=== PATIENT | male | born 1995 | race Two or more races ===

== ENCOUNTER 2016-03-31 16:39 | Emergency (ER) | payer BC ==
[2016-03-31 16:45] VITALS: BP 120/70
[2016-03-31 18:24] LABS: Hematocrit 44 % (42-52); Hemoglobin 15.2 g/dl (14.0-18.0); Mean Corpuscular HGB Conc 35 g/dl (31-36); Mean Corpuscular Hemoglobin 31 pg (27-31); Mean Corpuscular Volume 89 fL (80-94); Mean Platelet Volume 8 um3 (7.4-10.4); Red Blood Count 4.98 10^6/ul (4.0-5.4); Red Cell Distribution Width 13 % (10.5-15); White Blood Count 7.9 10^3/ul (3.5-10.8)
[2016-03-31 18:38] LABS: ALT 18 U/L (7-52); AST 27 U/L (13-39); Albumin 4.4 g/dL (3.2-5.2); Alkaline Phosphatase 49 U/L (34-104); Anion Gap 7 mmol/L (2-11); BUN/Creatinine Ratio 17.8 (8-20); Blood Urea Nitrogen 18 mg/dL (6-24); C Reactive Protein < 1.00 mg/L (< 5.00); CO2 Carbon Dioxide 27 mmol/L (22-32); Calcium 9.5 mg/dL (8.6-10.3); Chloride 103 mmol/L (101-111); EGFR African American 119.9 (>60); EGFR Non-African American 93.2 (>60); Globulin 2.2 g/dL (2-4); Glucose 92 mg/dL (70-100); Potassium 3.8 mmol/L (3.5-5.0); Sodium 137 mmol/L (133-145); Total Protein 6.6 g/dL (6.4-8.9)
[2016-03-31 19:01] LABS: Erythrocyte Sed Rate 3 mm/Hr (0-14)
[2016-03-31 19:17] LABS: Urine Bilirubin Negative (Negative); Urine Glucose Negative (Negative); Urine Nitrite Negative (Negative)
--- NOTE | 2016-04-15 07:50 | ED ---
Skin Complaint - HPI Summary HPI Summary: Pt here with purple spot along Lt inner thigh. Thinks he pulled a muscle here as he plays tennis and has been a little sore - bump on leg is more sore when he moves is thigh in certain positions - no pain with weight bearing. Denies acute injury here. Also denies fever, chills, unexpected weight change, night sweats, ab pain, N/V/D, dysuria, testicular pain and/or other skin areas of color change/swelling. No trauma to skin however he could have friction in the area d/t exercising. No radiating pain - denies numbness, tingling, weakness into LE's. - History of Current Complaint Chief Complaint: EDGeneral Time Seen by Provider: 03/31/16 17:00 Stated Complaint: GROIN INJURY Hx Obtained From: Patient Pain Intensity: 2 Pain Scale Used: 0-10 Numeric - Allergy/Home Medications Allergies/Adverse Reactions: Allergies Allergy/AdvReac Type Severity Reaction Status Date / Time No Known Allergies Allergy Verified 04/05/16 12:17 PMH/Surg Hx/FS Hx/Imm Hx Previously Healthy: Yes Endocrine/Hematology History: Denies: Hx Anticoagulant Therapy, Hx Blood Disorders, Hx Diabetes, Hx Unexplained Bleeding, Hx Coagulopothy, Autoimmune Disease Cardiovascular History: Denies: Hx Hypertension, Hx Pacemaker/ICD Sensory History: Denies: Hx Hearing Aid Psychiatric History: Denies: Hx Panic Disorder - Surgical History Surgery Procedure, Year, and Place: appendix Infectious Disease History: No Infectious Disease History: Denies: Hx Human Immunodeficiency Virus (HIV), Hx of Known/Suspected MRSA, Hx Shingles, Traveled Outside the [place] in Last 30 Days - Family History Known Family History: Positive: None - Social History Occupation: Student Lives: With Family - roommates Alcohol Use: Rare Hx Substance Use: No Substance Use Type: Reports: None Hx Tobacco Use: No Smoking Status (MU): Never Smoked Tobacco Review of Systems Negative: Fever, Chills, Fatigue Negative: Chest Pain Negative: Shortness Of Breath Negative: Abdominal Pain, Vomiting, Diarrhea, Nausea Negative: burning, dysuria, discharge, frequency, flank pain Skin: Other - see HPI Neurological: Negative Psychological: Normal All Other Systems Reviewed And Are Negative: Yes Physical Exam Triage Information Reviewed: Yes Vital Signs On Initial Exam: Initial Vitals Temp Pulse Resp BP Pulse Ox 98.4 F 71 18 120/70 100 03/31/16 16:42 03/31/16 16:42 03/31/16 16:42 03/31/16 16:42 03/31/16 16:42 Vital Signs Reviewed: Yes Appearance: Positive: Well-Appearing, No Pain Distress, Well-Nourished Skin: Positive: Warm, Dry - 6mm area of raised erythematous skin over Lt proximal inner thigh - mild TTP - mobile - no central pore, no drainage, no peripheral (appears to be skin vs. LN involvement). Negative: Lymphangitis - no enlarged LN's appreciated axillary, thoracic, supraclavicular, epitrochlear, popliteal Head/Face: Positive: Normal Head/Face Inspection Eyes: Positive: Normal, EOMI, Conjunctiva Clear. Negative: Conjunctiva Inflammed, Discharge ENT: Positive: Normal ENT inspection, Hearing grossly normal, Pharynx normal - mucosa moist Neck: Positive: Supple, Nontender, No Lymphadenopathy Respiratory/Lung Sounds: Positive: Clear to Auscultation, Breath Sounds Present. Negative: Rales, Rhonchi, Wheezes Cardiovascular: Positive: Normal, RRR, Pulses are Symmetrical in both Upper and Lower Extremities, S1, S2. Negative: Leg Edema Left, Leg Edema Right Abdomen Description: Positive: Nontender, No Organomegaly, Soft Bowel Sounds: Positive: Present Male Genital Exam: Positive: normal genitalia, no hernia. Negative: epididymal tenderness, erythema - scrotal area, penis, inguinal tenderness, lesions, scrotum tenderness (R), scrotum tenderness (L), testicular tenderness (R), testicular tenderness (L), urethral discharge Musculoskeletal: Positive: Normal, Strength/ROM Intact - no pain with ROM hip, knee, ankle Neurological: Positive: Normal, Sensory/Motor Intact, Alert, Oriented to Person Place, Time, CN Intact II-III Psychiatric: Positive: Normal Diagnostics - Vital Signs Vital Signs Temp Pulse Resp BP Pulse Ox 03/31/16 16:42 98.4 F 71 18 120/70 100 - Laboratory Lab Results: Lab Results 03/31/16 03/31/16 03/31/16 Range/Units 18:17 18:17 19:02 WBC 7.9 (3.5-10.8) 10^3/ul RBC 4.98 (4.0-5.4) 10^6/ul Hgb 15.2 (14.0-18.0) g/dl Hct 44 (42-52) % MCV 89 (80-94) fL MCH 31 (27-31) pg MCHC 35 (31-36) g/dl RDW 13 (10.5-15) % Plt Count 155 (150-450) 10^3/ul MPV 8 (7.4-10.4) um3 Neut % (Auto) 69.3 (38-83) % Lymph % (Auto) 20.2 L (25-47) % [place] % (Auto) 6.7 (1-9) % Eos % (Auto) 2.9 (0-6) % Baso % (Auto) 0.9 (0-2) % Absolute Neuts (auto) 5.4 (1.5-7.7) 10^3/ul Absolute Lymphs (auto) 1.6 (1.0-4.8) 10^3/ul Absolute Monos (auto) 0.5 (0-0.8) 10^3/ul Absolute Eos (auto) 0.2 (0-0.6) 10^3/ul Absolute Basos (auto) 0.1 (0-0.2) 10^3/ul Absolute Nucleated RBC 0 10^3/ul Nucleated RBC % 0 ESR 3 (0-14) mm/Hr Sodium 137 (133-145) mmol/L Potassium 3.8 (3.5-5.0) mmol/L Chloride 103 (101-111) mmol/L Carbon Dioxide 27 (22-32) mmol/L Anion Gap 7 (2-11) mmol/L BUN 18 (6-24) mg/dL Creatinine 1.01 (0.67-1.17) mg/dL Est GFR ( Amer) 119.9 (>60) Est GFR (Non-Af Amer) 93.2 (>60) BUN/Creatinine Ratio 17.8 (8-20) Glucose 92 (70-100) mg/dL Calcium 9.5 (8.6-10.3) mg/dL Total Bilirubin 1.00 (0.2-1.0) mg/dL AST 27 (13-39) U/L ALT 18 (7-52) U/L Alkaline Phosphatase 49 (34-104) U/L C-Reactive Protein < 1.00 (< 5.00) mg/L Total Protein 6.6 (6.4-8.9) g/dL Albumin 4.4 (3.2-5.2) g/dL Globulin 2.2 (2-4) g/dL Albumin/Globulin Ratio 2.0 (1-3) Urine Color Colorless Urine Appearance Clear Urine pH 7.0 (5-9) Ur Specific [place] 1.002 L (1.010-1.030) Urine Protein Negative (Negative) Urine Ketones Negative (Negative) Urine Blood Negative (Negative) Urine Nitrate Negative (Negative) Urine Bilirubin Negative (Negative) Urine Urobilinogen Negative (Negative) Ur Leukocyte Esterase Negative (Negative) Urine Glucose Negative (Negative) C.trachomatis (Amp Det) (Negative) N.gonorrhoeae (Amp Det) (Negative) 03/31/16 Range/Units 19:02 WBC (3.5-10.8) 10^3/ul RBC (4.0-5.4) 10^6/ul Hgb (14.0-18.0) g/dl Hct (42-52) % MCV (80-94) fL MCH (27-31) pg MCHC (31-36) g/dl RDW (10.5-15) % Plt Count (150-450) 10^3/ul MPV (7.4-10.4) um3 Neut % (Auto) (38-83) % Lymph % (Auto) (25-47) % [place] % (Auto) (1-9) % Eos % (Auto) (0-6) % Baso % (Auto) (0-2) % Absolute Neuts (auto) (1.5-7.7) 10^3/ul Absolute Lymphs (auto) (1.0-4.8) 10^3/ul Absolute Monos (auto) (0-0.8) 10^3/ul Absolute Eos (auto) (0-0.6) 10^3/ul Absolute Basos (auto) (0-0.2) 10^3/ul Absolute Nucleated RBC 10^3/ul Nucleated RBC % ESR (0-14) mm/Hr Sodium (133-145) mmol/L Potassium (3.5-5.0) mmol/L Chloride (101-111) mmol/L Carbon Dioxide (22-32) mmol/L Anion Gap (2-11) mmol/L BUN (6-24) mg/dL Creatinine (0.67-1.17) mg/dL Est GFR ( Amer) (>60) Est GFR (Non-Af Amer) (>60) BUN/Creatinine Ratio (8-20) Glucose (70-100) mg/dL Calcium (8.6-10.3) mg/dL Total Bilirubin (0.2-1.0) mg/dL AST (13-39) U/L ALT (7-52) U/L Alkaline Phosphatase (34-104) U/L C-Reactive Protein (< 5.00) mg/L Total Protein (6.4-8.9) g/dL Albumin (3.2-5.2) g/dL Globulin (2-4) g/dL Albumin/Globulin Ratio (1-3) Urine Color Urine Appearance Urine pH (5-9) Ur Specific [place] (1.010-1.030) Urine Protein (Negative) Urine Ketones (Negative) Urine Blood (Negative) Urine Nitrate (Negative) Urine Bilirubin (Negative) Urine Urobilinogen (Negative) Ur Leukocyte Esterase (Negative) Urine Glucose (Negative) C.trachomatis (Amp Det) Negative (Negative) N.gonorrhoeae (Amp Det) Negative (Negative) Result Diagrams: 03/31/16 18:17 03/31/16 18:17 Lab Statement: Any lab studies that have been ordered have been reviewed, and results considered in the medical decision making process. Course/Dx - Course Course Of Treatment: Pt presents with a single enlarged LN in Lt groin - labs are WNL and no clinical sx of systemic illness. Conservative care tx advised w/ close f/u. Pt agrees with plan. Also spoke w/ pt's father who agrees w/ plan. Reviewed danger s/sx of when to return to ED. - Diagnoses Provider Diagnoses: Lymphadenopathy Discharge - Discharge Plan Condition: Stable Disposition: HOME Patient Education Materials: Lymphadenopathy (ED) Referrals: [facility] LEIGH Medina [Primary Care Provider] - Additional Instructions: You may apply heat and use ibuprofen with food as needed for swelling, pain Drink plenty of water to help flush your system of toxins Rest Additional tests were ordered that are still in process. Follow-up with [facility] to review results and to recheck of affected areas. *If you develop fever, chills, abdominal pain, vomiting, painful urination and/ or difficulty urinating, back pain, return to ED
== END 2016-03-31 19:37 | disposition home or self-care (01) ==
LOC: ED 16:39
DX: R59.1 Generalized enlarged lymph nodes (principal)
CPT/HCPCS: 36415; 80053; 81003; 85025; 85652; 86140; 87491; 87591; 99282

== ENCOUNTER → 2016-12-22 17:17 | Emergency (ER) | payer OTHER, BC ==
[2016-12-22 17:27] VITALS: BP 115/68
== END | disposition left against medical advice (07) ==
LOC: ED 17:17
DX: M79.604 Pain in right leg (principal); Z53.21 Procedure and treatment not carried out due to patient leaving prior to being seen by health care provider
CPT/HCPCS: 99282

== ENCOUNTER 2016-12-22 22:16 | Emergency (ER) | payer OTHER, BC ==
[2016-12-22 23:27] VITALS: BP 114/64
--- NOTE | 2016-12-22 23:30 | ED ---
Lower Extremity - HPI Summary HPI Summary: 21 male presents to ED with complaints of right grant pain after being kicked while playing soccer yesterday. Sent over by for concern for compartment syndrome. Already had an xray at that was negative. Patient states it is painful without relief. Admits to bruising and swelling. Denies any other medical problems. Has not taken medication. Pain is worse with movement, walking and touching. Has been able to walk. Here to speak with orthopedics. No other complaints. No medications. No PMHX. - History of Current Complaint Chief Complaint: EDExtremityLower Stated Complaint: RIGHT GRANT INJURY Time Seen by Provider: 12/22/16 23:23 Hx Obtained From: Patient Mechanism Of Injury: Direct Blow - kicked by kleet Onset of Pain: Immediate, Post Accident Onset/Duration: Worse Since Severity Initially: Moderate Severity Currently: Severe Pain Intensity: 9 Pain Scale Used: 0-10 Numeric Timing: Constant Location: Is Discrete @ - right anterior grant Character Of Pain: Sharp, Aching Associated Signs And Symptoms: Positive: Swelling, Bruising Aggravating Factor(s): Standing, Ambulation Alleviating Factor(s): Rest Able to Bear Weight: Yes - painful - Allergies/Home Medications Allergies/Adverse Reactions: Allergies Allergy/AdvReac Type Severity Reaction Status Date / Time No Known Allergies Allergy Verified 05/21/16 11:27 PMH/Surg Hx/FS Hx/Imm Hx Endocrine/Hematology History: Denies: Hx Diabetes Cardiovascular History: Denies: Hx Hypertension, Hx Pacemaker/ICD History: Denies: Hx Renal Disease Sensory History: Denies: Hx Hearing Aid Psychiatric History: Denies: Hx Panic Disorder - Surgical History Surgery Procedure, Year, and Place: appendix - Immunization History Immunizations Up to Date: Yes Infectious Disease History: No Infectious Disease History: Denies: Traveled Outside the [place] in Last 30 Days - Family History Known Family History: Positive: None - Social History Alcohol Use: Rare Substance Use Type: Reports: None Smoking Status (MU): Unknown if Ever Smoked Review of Systems Constitutional: Negative Cardiovascular: Negative Respiratory: Negative Positive: Arthralgia, Myalgia, Edema Positive: Bruising Neurological: Negative All Other Systems Reviewed And Are Negative: Yes Physical Exam Triage Information Reviewed: Yes Vital Signs On Initial Exam: Initial Vitals Temp Pulse Resp BP Pulse Ox 97.5 F 75 16 116/60 98 12/22/16 22:19 12/22/16 22:19 12/22/16 22:19 12/22/16 22:19 12/22/16 22:19 Vital Signs Reviewed: Yes Appearance: Positive: Well-Appearing, No Pain Distress, Well-Nourished Skin: Positive: Warm, Skin Color Reflects Adequate Perfusion, Dry, Other - ecchymosis right anterior grant, with edema. Negative: Cold, Soft, Cyanosis @, Pale, Erythema @ Head/Face: Positive: Normal Head/Face Inspection Eyes: Positive: Conjunctiva Clear ENT: Positive: Hearing grossly normal Neck: Positive: Supple, Nontender Respiratory/Lung Sounds: Positive: Clear to Auscultation, Breath Sounds Present. Negative: Rales, Rhonchi, Wheezes Cardiovascular: Positive: Normal, RRR, Pulses are Symmetrical in both Upper and Lower Extremities - 2+ pedal b/l. Negative: Murmur, Rub Musculoskeletal: Positive: Normal, Strength/ROM Intact, Pain @ - anterior right grant mid/distal shaft with ecchymosis edema and tenderness to touch, Other - not firm to touch, normal pedal pulses, equal and strong b/l pedal. Negative: Limited @, Interruption @, Abnormal @ Neurological: Positive: Normal, Sensory/Motor Intact, Alert, Oriented to Person Place, Time, CN Intact II-III, Reflexes Intact, NV Bundle Intact Distally, Unable to Assess Gait - due to injury Diagnostics - Vital Signs Vital Signs Temp Pulse Resp BP Pulse Ox 12/22/16 23:27 98.8 F 70 17 114/64 98 12/22/16 22:19 97.5 F 75 16 116/60 98 - Laboratory Lab Statement: Any lab studies that have been ordered have been reviewed, and results considered in the medical decision making process. Lower Extremity Course/Dx - Course Course Of Treatment: patient refused xray due to already having one at and was negative. Spoke with Dr Isaac, ortho, about patient who also evaluated patient and ruled out compartment syndrome. PE findings not strongly suggestive of compartment syndrome however pain out of proportion to injury and not improving required testing. Negative. Advised by Dr Isaac to apply cristofer bandage , cam boot, crutches, motrin and follow up. Aware of worsening signs and symptoms. All questions were answered. Patient understands and agrees with plan. - Diagnoses Differential Diagnosis/HQI/PQRI: Positive: Compartment Syndrome, Contusion, Fracture (Closed), Sprain, Strain Provider Diagnoses: Contusion of right lower leg - Physician Notifications Discussed Care Of Patient With: Dr Isaac Time Discussed With Above Provider: 23:00 Instructed by Provider To: Will See In ED Discharge - Discharge Plan Condition: Stable Disposition: HOME Patient Education Materials: Contusion in Adults (ED) Referrals: [facility] - Florentino DOVER [Primary Care Provider] - Hector Isaac MD [Medical Doctor] - Additional Instructions: Rest, ice, elevate. Continue Motrin for pain. Wear boot, cristofer bandage and use crutches while symptoms persist. Follow up with ortho if symptoms persist or worsen, OR if new symptoms develop. Do not participate in physical activity until symptoms improve completely. Return if any new or worsening symptoms. Follow up with primary care provider.
--- NOTE | 2016-12-23 04:26 | CONS ---
CONSULTATION REPORT: DATE OF CONSULT: 12/22/16 at basically 2230. 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 He was playing some pickup soccer when he was kicked in the right anterior calf approximately 28 hours ago. He sat at home with some ibuprofen and icing and as the pain persisted today, he was seen at [facility] this afternoon about 7 hours ago. They had some concern of a possible compartment syndrome, so he has agreed to return tonight to the emergency room here at [facility] for evaluation. Mariano is a healthy 21-year-old. He is on no medication, no allergies, no medical illness. He is in no acute distress. Pain is located and isolated in the anterior right calf. He complains of some pain when he tries to move his ankle up and down. He denies any numbness or tingling in the foot. On examination, he is healthy, jovial, he is with his 2 friends from the tennis team and is in no acute distress. The leg itself is non-ecchymotic, nonerythematous. He has full range of motion of the knee, but the ankle is resting in 20 degrees of equinus. He is able to dorsiflex to neutral actively, but not beyond because of pain in the anterior calf area. He has no loss of sensation in the foot. He is able to move his toes well dorsiflexion and plantarflexion, and has a good dorsal pulse and posterior pulse. His swelling is only in the anterior compartment and it is mild. It is not particularly tense, not firm. The calf itself posteriorly is soft and supple. Under his consent and under sterile condition, I infiltrated a small amount of lidocaine in the subcutaneous tissue of the anterior compartment and then took 2 readings with the [place] compartment monitor, one in the more superficial compartment and then diving deep about 2 inches deep in the calf a second reading. Both of these equilibrated in the range of 28 to 30 mm of pressure. His systolic was around 100 during the procedure. It was felt that these tests were not consistent with compartment syndrome. He will have an Sunil wrap on the calf and a boot for ambulation and will follow up in the office. [id number]/[facility] #: [id number] [facility] CENTERSuleman
== END 2016-12-22 23:39 | disposition home or self-care (01) ==
LOC: ED 22:16
DX: S80.11XA Contusion of right lower leg, initial encounter (principal); W50.0XXA Accidental hit or strike by another person, initial encounter; Y93.66 Activity, soccer; Y92.9 Unspecified place or not applicable; Y99.9 Unspecified external cause status
CPT/HCPCS: 99282